=== PATIENT | male | born 1950 | race Two or more races ===

== ENCOUNTER → 2024-07-13 | Outpatient (CLI) | payer OTHER ==
[~2024-07-13] VITALS: Ht 172.7 cm; Wt 86.2 kg
[~2024-07-13] MED LIST: ALBU108A5 IN; CHOL20007 PO; FLUT1AER7 IN; HEPARIN SODIUM (PORCINE) 5000 UNITS/ML 1ML VIAL ONE; LIDOCAINE 2%HCL (LOCAL ANESTH.) INJ 20ML MDV ONE; LIDOCAINE W/ EPINEPHRINE 2% INJ 20ML VIAL ONE; MIDAZOLAM HCL 2MG/2ML 2ml VIAL (1mg/ml) ONE; TIOTCAP IN; VALS40TA2 PO; ceFAZolin 1GM VL ONE; ceFAZolin 1GM/50ML 50 ML IV ONE
[2024-07-13 08:59] LABS: Chloride 101 mmol/L (98-107); Potassium 4.3 mmol/L (3.5-5.1); Sodium 138 mmol/L (136-145)
[2024-07-13 09:00] LABS: Calcium 9.9 mg/dL (8.7-10.4)
[2024-07-13 09:05] LABS: BUN/Creatinine Ratio 19.5 (10.0-20.0); Blood Urea Nitrogen 16 mg/dL (9-23)
[2024-07-13 09:06] LABS: Basophils # (auto) 0 10 ^3/uL (0-0.2); Basophils % (auto) 0.6 % (0.0-2.0); Eosinophils # (auto) 0.4 10 ^3/uL (0-0.8); Hematocrit 41.4 % (41.0-53.0); Hemoglobin 13.5 g/dL (13.5-17.5); Lymphocytes # (auto) 0.6 10 ^3/uL (0.4-5.4); Monocytes # (auto) 0.8 10 ^3/uL (0-1.3); Neutrophils # (auto) 4.9 10 ^3/uL (1.6-8.6); White Blood Cell 6.8 10^3/uL (4.4-10.8)
[2024-07-13 09:07] LABS: Eosinophils % (auto) 6.1 % (0.0-7.0); Lymphocytes % (auto) 8.5 % (10.0-50.0); Mean Corpuscular Hemoglobin 26.6 pg (28.0-32.0); Mean Corpuscular Hgb Conc. 32.7 g/dL (32.0-36.0); Mean Corpuscular Volume 81.6 fL (80.0-100.0); Monocytes % (auto) 12.4 % (0.0-12.0); Neutrophils % (auto) 72.4 % (37.0-80.0); Platelet Count (auto) 270 10^3/uL (140-450); Red Blood Cells 5.08 10^6/uL (4.5-5.90); Red Cell Distribution Width 17.3 % (11.8-14.3)
[2024-07-13 09:08] LABS: Glucose 106 mg/dL (74-106)
[2024-07-13 11:12] LABS: Platelet Estimate Adequate
[2024-07-13] MEDS: fentaNYL CITRATE 100 MCG/2 ML VL IV ONE (11:29)
[2024-07-13] MEDS: ACETAMINOPHEN 325 MG TAB PO ONE (11:34)
[2024-07-13 11:43] LABS: Anion Gap 12 (5-15); Carbon Dioxide 25 mmol/L (20-31)
[2024-07-13 13:05] VITALS: BP 125/72; PULSE 68; RESP 17; O2SAT 90
[2024-07-13 13:17] VITALS: BP 125/72; PULSE 71; RESP 15; O2SAT 93
[2024-07-13 13:45] VITALS: BP 125/83; PULSE 65; RESP 24; O2SAT 91
--- NOTE | 2024-07-13 13:59 | DVH ---
XY Insertion of Venous Cath, HISTORY: PORT A CATH PL for chemotherapy. PROCEDURE: Informed consent was obtained. The patient was placed supine on the interventional table. A limited localization ultrasound of the right neck base was obtained. The right upper chest and neck base were prepped with chlorhexidine which was allowed to dry and draped in the usual sterile fashio n. Time out was performed. With real-time ultrasound guidance, the internal jugular vein was accessed with a micropuncture kit, and an image documenting patency sent to PACS. The planned skin tract and the port placement site were were infiltrated with lidocaine with epinephr ine. The subcutaneous pocket was created with sharp and blunt dissection. The catheter was tunneled t hrough the skin tract to the neck site. The 9.[address] port was attached to the tubing flushed. T he catheter was trimmed to desired length. The internal jugular vein entrance site was serially dilat ed and the catheter was placed through a peel-a-way sheath. The port was flushed with heparinized jeff ine and demonstrated satisfactory flow. The skin openings were sutured closed in 1 layers with Vicryl , as well as and Dermabond and then sterile dressings applied. A post procedure image was obtained. N o immediate complication was identified. DAP 97.4 FLUOROSCOPY TIME: 0.8 minutes. SEDATION: Dr. Kiko Duron was personally responsible for the administration of moderate sedation during the procedure performed, including the use of an independent trained observer who had no other duties during the procedure. The drugs utilized were IV fentanyl and versed (see nursing log for details). The total time of supervision by the attending physician was approximately 45 minutes. FINDINGS: Widely patent right internal jugular vein. Post procedure image demonstrates [id number] r in the right upper chest with the tip right atrium. IMPRESSION: Successful placement of 9.6 Egyptian right chest [id number]. Please contact IR for removal when no longer needed.
[2024-07-13 14:01] VITALS: BP 141/98; PULSE 75; RESP 15; O2SAT 92
== END | disposition home or self-care (01) ==
LOC: XYW 06:53
PROVIDERS: ATTEND Radiology Diagnostic Radiology
DX: Z45.2 Encounter for adjustment and management of vascular access device (principal); C20 Malignant neoplasm of rectum
CPT/HCPCS: 36415; 36561; 76937; 80048; 85025; C1788; C1894; J0690; J1644; J2250; J7030; 99152; 99153